=== PATIENT | female | born 1965 | race Caucasian/White ===

== ENCOUNTER 2018-02-21 09:26 | Inpatient (IN) | payer OTHER ==
[~2018-02-21] VITALS: Ht 149.9 cm; Wt 51.8 kg
[2018-02-21 10:33] LABS: HEMATOCRIT 37.8 % (36.0-46.0); HEMOGLOBIN 12.9 G/DL (11.9-15.5); MCH 29.3 PG (29.0-34.0); MCHC 34.1 G/DL (30.0-36.0); MCV 85.9 FL (83-99); PLATELET COUNT 389 K/uL (156-360); RBC DIS.WIDTH-CV 13.7 % (11.8-14.6); RBC DIS.WIDTH-SD 42.8 % (39-53); WHITE BLOOD COUNT 8.8 K/uL (4.1-10.2)
[2018-02-21 10:41] LABS: APPEARANCE CLEAR ((CLEAR)); BILIRUBIN NEGATIVE; BLOOD LARGE; COLOR STRAW ((YELLOW)); GLUCOSE (STRIP) NEGATIVE; KETONES NEGATIVE; LEUKOCYTES MODERATE; NITRITE NEGATIVE; PROTEIN (STRIP) NEGATIVE; SPECIFIC GRAVITY 1.003 (1.000-1.030); UROBILINOGEN 0.2 MG/DL (0.2-1.0)
[2018-02-21 10:46] LABS: BACTERIA NONE SEEN /HPF; EPITHELIAL CELLS RARE /HPF; MUCUS NONE SEEN /LPF; RED BLOOD CELLS 0-5 /HPF (0-5)
[2018-02-21 11:02] LABS: AMPHETAMINE NEGATIVE (500 ng/mL); BARBITURATES NEGATIVE (200 ng/mL); BENZODIAZEPINES NEGATIVE (150 ng/mL); BUPRENORPHINE NEGATIVE (10 ng/mL); COCAINE NEGATIVE (150 ng/mL); METHADONE NEGATIVE (200 ng/mL); METHAMPHETAMINE NEGATIVE (500 ng/mL); OPIATES (MORPHINE) NEGATIVE (100 ng/mL); OXYCODONE NEGATIVE (100 ng/mL); PHENCYCLIDINE NEGATIVE (25 ng/mL); PROPOXYPHENE NEGATIVE (300 ng/mL); THC CANNABINOIDS NEGATIVE (50 ng/mL); TRICYCLIC ANTIDEPRESSANTS NEGATIVE (300 ng/mL)
[2018-02-21 11:08] LABS: CHLORIDE 103 MEQ/L (99-109); POTASSIUM 4.1 MEQ/L (3.7-5.4); SODIUM 136 MEQ/L (136-147)
[2018-02-21 11:30] LABS: CREATININE 0.8 MG/DL (0.6-1.3); GFR ESTIMATE (CALCULATED) > 59 mL/min/; GLUCOSE 113 mg/dL (70-99); SERUM ETHYL ALCOHOL < 10 mg/dL; UREA NITROGEN (BUN) 9 mg/dL (9-23)
[2018-02-21] MEDS ORDERED: NITROFURANTOIN100 M3 PO (11:43)
[2018-02-21] MEDS ORDERED: ATORVASTATIN CA20 MG PO (11:44)
[2018-02-21] MEDS ORDERED: ALENDRONATE SOD70 MG PO (11:44)
[2018-02-21] MEDS ORDERED: FLUOXETINE HCL40 MG PO (11:45)
[2018-02-21] MEDS ORDERED: SUMATRIPTAN SU100 MG PO (11:45)
[2018-02-21] MEDS ORDERED: VENTOLIN HFA18 GM IH (11:46)
[2018-02-21] MEDS ORDERED: CALCIUM 600 +1 EA16 PO (11:47)
[2018-02-21] MEDS ORDERED: METOPROLOL SUCC25 MG PO (11:47)
[2018-02-21] MEDS ORDERED: LISINOPRIL20 MG PO (11:47)
[2018-02-21] MEDS ORDERED: BACLOFEN10 MG PO (11:48)
[2018-02-21] MEDS ORDERED: OMEPRAZOLE20 M2 PO (11:48)
[2018-02-21] MEDS ORDERED: BUSPAR5 MG PO (11:48)
[2018-02-21] MEDS ORDERED: COMPAZINE10 MG PO (11:49)
[2018-02-21] MEDS ORDERED: OXYCODONE HCL5 M1 PO (11:50)
[2018-02-21 16:27] VITALS: BP 154/90
[2018-02-22 07:57] VITALS: BP 125/70
[2018-02-22 16:31] VITALS: BP 103/60
[2018-02-23 09:49] VITALS: BP 112/63
[2018-02-23 16:16] VITALS: BP 121/62
[2018-02-24 07:47] VITALS: BP 115/65
[2018-02-24 16:54] VITALS: BP 1089/59
[2018-02-25 08:01] VITALS: BP 139/83
[2018-02-25 16:08] VITALS: BP 120/61
[2018-02-26 08:02] VITALS: BP 120/60
[2018-02-26 15:13] VITALS: BP 113/72
[2018-02-27 09:24] VITALS: BP 130/70
[2018-02-27] MEDS ORDERED: MIRTAZAPINE30 MG PO (10:28)
[2018-02-27] MEDS ORDERED: ROPINIROLE HCL0.5 MG PO (10:28)
== END 2018-02-27 13:10 | disposition home or self-care (01) | DRG 885 ==
LOC: EME 09:26 → 1WEST 12:09 → EDOF 12:09 → ENRESERV 16:03 → 1WEST 16:04
PROVIDERS: Family Medicine
DX: F33.2 Major depressive disorder, recurrent severe without psychotic features (principal); R45.851 Suicidal ideations; F11.10 Opioid abuse, uncomplicated; G89.29 Other chronic pain; K21.9 Gastro-esophageal reflux disease without esophagitis; I10 Essential (primary) hypertension; M81.0 Age-related osteoporosis without current pathological fracture; F17.200 Nicotine dependence, unspecified, uncomplicated; G43.909 Migraine, unspecified, not intractable, without status migrainosus; M79.7 Fibromyalgia; G25.81 Restless legs syndrome; Z90.721 Acquired absence of ovaries, unilateral
CPT/HCPCS: 80048; 81003; 85027; 90839; 94799; 97150 GO; 97166 GO; 99281; 99285; G0480; J2405; J7040; Q0177